=== PATIENT | female | born 1930 | race Caucasian/White ===

== ENCOUNTER → 2017-10-17 | Outpatient (CLI) | payer MEDICARE ==
[~2017-10-17] MED LIST: AZI250 PO; CEP500 PO; CODE120S4 PO; ESOM20CA31 PO; ESOM40CA42 PO; HYDR12.558 PO; LISI-362 PO; LOR5/325 PO; NO; OMEP-218 PO; SIMV5TAB56 PO; SIMVASTATIN; [UNRECOGNIZED DRUG - CODE] PO; [UNRECOGNIZED DRUG - REMARK]
--- NOTE | 2017-10-17 11:52 | RADIOLOGY IMAGING REPORT ---
FACILITY: [facility] - [place] PATIENT NAME: Romi Ruiz : 1930 MR: [id number] V: [id number] EXAM DATE: ORDERING PHYSICIAN: TRAV STUART TECHNOLOGIST: Location: [facility] Patient: Romi Ruiz : 1930 Visit/Account:[id number] Date of Sevice: 10/17/2017 Exam type: LUMBAR SPINE 2 OR 3 VIEW History: Low back pain mostly on the right side Comparison: February 24, 2014. Findings: There are five nonrib-bearing lumbar-type vertebral bodies present.. Again noted is the 1 cm anterio r listhesis of L5 with respect to S1. Moderate disc space narrowing also noted at this level. Moder ate disc space narrowing at L3-4 appears unchanged as is mild to moderate disc space narrowing at L2- 3 and L4-5. Incidentally noted are vascular calcifications in the abdominal aorta IMPRESSION: 1. Multilevel spondylotic changes of the lumbar spine appear similar to the prior study. If symptom s persist MR may be helpful Report Dictated By: Arline Izaguirre MD at 10/17/2017 11:44 AM Report E-Signed By: Arline Izaguirre MD at 10/17/2017 11:48 AM WSN:[email or web address]
== END ==
LOC: RAD 10:44
PROVIDERS: ATTEND Family Medicine
DX: M47.816 Spondylosis without myelopathy or radiculopathy, lumbar region (principal)
CPT/HCPCS: 72100

== ENCOUNTER 2017-10-31 14:58 | Outpatient (RCR) | payer MEDICARE ==
--- NOTE | 2017-10-23 10:27 | PT INITIAL EVALUATION ---
MEDICAL DIAGNOSIS: back pains TREATMENT DIAGNOSIS: same, altered gait DATE OF ONSET: 04/22/17 SUBJECTIVE: Romi Ruiz presents to physical therapy with complaints of poor posture during gait. She reports that she was having low back pain a while ago , but recently the pain has gotten better and occasionally she will feel a discomfort on/around L PSIS. She reports that she started having heart problems approximately 2 years ago. 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 She reports that her low back become uncomfortable when ambulating and lifting heavy items or objects. Furthermore, since the heart troubles, she reports that she continues to feel increased weakness and decreased energy. As a result, she has slowed her life down tremendously. She reports that she lives alone in a multiple level home but does not go down the stairs often. She denies any recent falls. She denies any current low back pain. Pain location is Around L PSIS and described as discomfort. Pain scale is 0 on a ten point pain scale. Pain is worse with walking and lifting and better with sitting. REHAB PROBLEM LIST: Increased Pain Decreased ROM Decreased Endurance Decreased Function Decreased Gait PREVIOUS MEDICAL HISTORY: See EMR OCCUPATION: Retired OBJECTIVE: Posture: She demonstrated forward head posture, B rounded shoulders, thoracic kyphosis, and decreased lumbar lordosis ROM: Trunk AROM: flexion: NIL with normal end feel. extension: moderate restriction with painful end feel. R sidebending: NIL with normal end feel. L sidebending: moderate restriction with painful end feel (catching). Special Tests: Repeated extension: pain during the test and better following the test. Educated her on posture while sitting and on her specific home exercise to perform every 2 hours X 15 repetitions Mobility: Independent Gait: Normal gait mechanics, however, she did demonstrate increased trunk flexion. ASSESSMENT: Romi will benefit from skilled physical therapy to address the listed impairments to improve function and QOL. Based on today's examination, it appears that she either has a lumbar derangement or dysfunction that will respond to extension. In the next few sessions, we will be able to determine whether it is a derangement or a dysfunction. Short Term Goals 2 weeks: Pt will demonstrate centralized low back pain to improve function and QOL. 4 weeks: Pt will demonstrate abolished low back pain and return to prior level of function to improve QOL. Patient's Goals to improve posture during walking PLAN: Patient to be seen for manual therapy, ther ex, posture, neuromuscular re -education, and endurance for 2x/Week for 4 Weeks If you have any questions, comments, or concerns about this report or plan, please contact me at . Thank you, Madhav Son, PT, DPT [facility]
[2017-11-07] MEDS ORDERED: WARF5TAB23 PO (14:55)
[2017-11-07] MEDS ORDERED: PANT40TA65 PO (14:55)
[2017-11-07] MEDS ORDERED: AMLO-96 PO (14:55)
--- NOTE | 2017-11-22 16:34 | PT PLAN OF CARE ---
Physician: Liz Kennedy DO Patient is being seen: 2x/week Therapist: Madhav Son, PT, DPT Medical Diagnosis: back pains Treatment Diagnosis: same, altered gait Date of Onset: 04/22/17 Date of Initial Evaluation: 10/22/17 Date patient was last seen: 10/31/17 Number of treatments: 4 Number of cancellations/No shows: 0 INTERVENTIONS: manual therapy, ther ex, posture, neuromuscular re-education, and endurance Short Term Goals 2 weeks: Pt will demonstrate centralized low back pain to improve function and QOL. MET 4 weeks: Pt will demonstrate abolished low back pain and return to prior level of function to improve QOL. MET Patient's Goals to improve posture during walking Status of Patient's Goals: MET Patient Compliance: MET Prognosis: Good Reasons for continuing therapy: This is a discharge note for Romi Ruiz. She reports that she is doing really well with her low back pain. She denies any low back pain and states that it has fully recovered. She demonstrated full trunk AROM, abolished low back pain, and independent on her specific exercise program. Furthermore, she demonstrated improved posture in sitting and with ambulation. She has met all of her goals. As a result, she will be discharged from PT. OBJECTIVE: Posture: She demonstrated forward head posture, B rounded shoulders, thoracic kyphosis, and decreased lumbar lordosis ROM: Trunk AROM: flexion: NIL with normal end feel. extension: NIL with normal end feel. R sidebending: NIL with normal end feel. L sidebending: NIL with normal end feel. Mobility: Independent Gait: Normal gait mechanics, however, she did demonstrate increased trunk flexion. If you have any questions, comments, or concerns about this report or plan, please contact me at . Thank you, Madhav Son, PT, DPT [facility]
== END 2017-10-31 18:00 | disposition home or self-care (01) ==
LOC: PT 14:58
PROVIDERS: ATTEND Family Medicine
DX: M54.5 Low back pain (principal); R26.89 Other abnormalities of gait and mobility; Z95.0 Presence of cardiac pacemaker
CPT/HCPCS: 97162

== ENCOUNTER → 2017-11-07 | Outpatient (CLI) | payer MEDICARE ==
[~2017-11-07] MED LIST changes: +AMLO-96 PO; +PANT40TA65 PO; +WARF5TAB23 PO
[2017-11-07 16:02] LABS: PLATELET COUNT, AUTOMATED 162 K/uL (150-450)
== END ==
LOC: LAB 15:52
PROVIDERS: ATTEND Emergency Medicine
DX: I10 Essential (primary) hypertension (principal); E55.9 Vitamin D deficiency, unspecified
CPT/HCPCS: 36415; 82040; 82247; 82306; 82310; 82374; 82435; 82565; 82947; 84075; 84132; 84155; 84295; 84450; 84460; 84520; 85025

== ENCOUNTER → 2017-11-11 | Outpatient (CLI) | payer MEDICARE ==
--- NOTE | 2017-11-11 14:17 | RADIOLOGY IMAGING REPORT ---
FACILITY: [facility] - [place] PATIENT NAME: Romi Ruiz : 1930 MR: [id number] V: [id number] EXAM DATE: ORDERING PHYSICIAN: MARIAN MEREDITH TECHNOLOGIST: Location: [facility] [place] Patient: Romi Ruiz : 1930 Visit/Account:[id number] Date of Sevice: 11/11/2017 DEXA Scan Clinical history: Postmenopausal estrogen deficiency. Comparison: DEXA scan from by 514. LUMBAR SPINE: The bone mineral density (BMD) measured from L1-L4 correlates with a Z-score of 1.2 and a T-score of -0.9 which is Normal as defined by the World Health Organization. The corresponding risk of fracture in the lumbar spine is 1-2 times increased compared with a young adult reference population. This v alue has increase by 0.3 % since the prior study. More than 5% change is considered significant. HIP: Bone mineral density (BMD) measured in the LEFT total hip region correlates with a Z-score 0.4 and a T-score of -2.2 which is osteopenia as defined by the World Health Organization. The corresponding r isk of fracture in the hip is 4-6 times increased compared to a young adult reference population. Thi s value has decrease by 8.2 % since the prior study. More than 5% change is considered significant. T score left femoral neck -2.2 Bone mineral density (BMD) measured in the Femoral Neck region measures 0.726 g/cm?. IMPRESSION: 1. Lumbar spine: Normal. There has been 0.3% increase in the bone mineral density since the previou s exam. 2. Left Total Hip: Osteopenia. There has been 8.2% decrease in the bone mineral density since the p revious exam. 3. Femoral Neck: Bone Mineral Density is 0.726 g/cm? The next DEXA scan of this patient should include the following sites: L1-L4 and the left hip. FRAX? WHO Fracture Risk Assessment Tool link: <http://www.shef.ac.uk/FRAX/tool.jsp?locationValue=9> PLEASE NOTE: 1) The World Health Organization defines low BMD as follows: T-score Normal > -1 Osteopenia < -1 and > -2.5 Osteoporosis < -2.5 without fractures Established osteoporosis < -2.5 with fractures 2) In general, you may wish to consider: Diagnosis Treatment Follow-up DEXA Normal BMD Prevention 2-3 years Osteopenia Prevention/therapy 1-2 years Osteoporosis Therapy Yearly 3) Fracture risk estimated from the T-score is more accurate for vertebral fractures (often spontane ous) than for hip fractures. Report Dictated By: Arline Izaguirre MD at 11/11/2017 2:12 PM Report E-Signed By: Arline Izaguirre MD at 11/11/2017 2:13 PM WSN:[id number]
== END ==
LOC: RAD 13:30
PROVIDERS: ATTEND Emergency Medicine
DX: Z13.820 Encounter for screening for osteoporosis (principal); M85.88 Other specified disorders of bone density and structure, other site; Z78.0 Asymptomatic menopausal state
CPT/HCPCS: 77080